=== PATIENT | male | born 1990 | race African-American/Black ===

== ENCOUNTER 2019-11-17 12:22 | Emergency (ER) | payer MEDICAID, OTHER ==
[~2019-11-17] VITALS: Ht 170.2 cm; Wt 87.1 kg
[~2019-11-17 12:22] MED LIST: RISPERDAL0.25 MG ORAL; TENORMIN25 MG ORAL; WELLBUTRIN75 MG ORAL; ZOLOFT25 MG ORAL; ZYPREXA2.5 MG ORAL
[2019-11-17 12:43] VITALS: BP 162/110
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
[2019-11-17 13:44] LABS: ANION GAP 15 mmol/L (5-15); BLOOD UREA NITROGEN 11 mg/dL (7-18); CALCIUM 9.7 MG/DL (8.5-10.1); CARBON DIOXIDE 25 MMOL/L (21-32); CHLORIDE 106 MMOL/L (98-107); POTASSIUM 3.9 MMOL/L (3.5-5.1); SODIUM 146 MMOL/L (136-145)
[2019-11-17 13:46] LABS: APPEARANCE,URINE CLEAR; BILIRUBIN, URINE NEGATIVE (NEGATIVE); GLUCOSE, URINE (UA) NEGATIVE (NEGATIVE); KETONES,URINE NEGATIVE (NEGATIVE); LEUKOCYTE ESTERASE ,URINE 1+ (NEGATIVE); NITRITE,URINE NEGATIVE (NEGATIVE); PH,URINE 6.5 (4.5-8.0); PROTEIN,URINE NEGATIVE (NEGATIVE); UROBILINOGEN,URINE NORMAL MG/DL (0.0-1.0)
[2019-11-17 13:47] LABS: COLOR,URINE YELLOW
[2019-11-17 13:48] LABS: ALANINE AMINOTRANSFERASE 33 U/L (12-78); ALBUMIN 4.2 G/DL (3.4-5.0); ALBUMIN/GLOBULIN RATIO 1.2 (1.0-2.7); ALKALINE PHOSPHATASE 80 U/L (46-116); ASPARTATE AMINO TRANSFERASE 22 U/L (15-37); BILIRUBIN,TOTAL 0.3 MG/DL (0.2-1.0)
[2019-11-17 13:49] LABS: EOSINOPHILS % (AUTO) 0.7 % (0.0-3.0); HEMATOCRIT 43.8 % (42.0-52.0); HEMOGLOBIN 14.5 G/DL (14.2-18.0); LYMPHOCYTES % (AUTO) 19.6 % (20.0-45.0); MEAN CORPUSCULAR VOLUME 89 FL (80-99); MONOCYTES % (AUTO) 7.8 % (1.0-10.0); PLATELET COUNT 221 K/UL (150-450); RED BLOOD COUNT 4.93 M/UL (4.70-6.10); RED CELL DISTRIBUTION WIDTH 10.9 % (11.6-14.8); WHITE BLOOD COUNT 7.9 K/UL (4.8-10.8)
[2019-11-17] MEDS ORDERED: ZOFRAN4 M1 ORAL (14:06)
[2019-11-17] MEDS ORDERED: TYLENOL EXTRA500 MG ORAL (14:06)
[2019-11-17] MEDS ORDERED: OMEPRAZOLE20 M3 ORAL (14:06)
[2019-11-17 14:24] VITALS: BP 138/87
--- NOTE | 2019-11-17 14:25 | NUR ---
ER DISCHARGE NOTE: Patient is cleared to be discharged per ERMD, pt is aox4, on room air, with stable vital signs. pt was given dc and prescription instructions, pt was able to verbalize understanding, pt id band and iv site removed without complications. pt is able to ambulate with steady gait. pt took all belongings.
[2019-12-10] MEDS ORDERED: GUAIFENESIN DM118 M1 ORAL (10:25)
== END 2019-11-17 14:30 | disposition home or self-care (01) ==
LOC: EMR 12:40
DX: R51 Headache (principal); K29.70 Gastritis, unspecified, without bleeding; S00.93XA Contusion of unspecified part of head, initial encounter; I10 Essential (primary) hypertension; F20.9 Schizophrenia, unspecified; Y09 Assault by unspecified means; Y93.9 Activity, unspecified; Y92.9 Unspecified place or not applicable; Z79.899 Other long term (current) drug therapy
CPT/HCPCS: 36415; 70450; 80053; 80307; 81003; 83690; 85025; 96361; 96374; J2405; J7030; Z7502; 99284

== ENCOUNTER 2019-11-22 16:26 | Emergency (ER) | payer MEDICAID ==
[~2019-11-22] VITALS: Ht 170.2 cm; Wt 86.2 kg
[~2019-11-22 16:26] MED LIST changes: +OMEPRAZOLE20 M3 ORAL; +TYLENOL EXTRA500 MG ORAL; +ZOFRAN4 M1 ORAL
[2019-11-22] MEDS ORDERED: AMLODIPINE BESY10 MG ORAL (16:44)
[2019-11-22 16:48] VITALS: BP 164/106
--- NOTE | 2019-11-22 16:48 | NUR ---
ED Nurse Note: Pt walked in from home d/t suicidal ideation. Pt states he wants to hang himself. Room made safe for pt. Pt placed in bed. Respirations even and unlabored on room air. Vitals stable as documented.
--- NOTE | 2019-11-22 16:53 | Emergency Room Report ---
History of Present Illness General Chief Complaint: Behavioral Complaint Source: Patient Present Illness HPI 29-year-old male history of schizophrenia history of depression history of suicidal ideations was going to hang himself today however his friend stopped him he states he get suicidal when he thinks about his dad it alleviated by taking his Abilify he is due on 04 December, current severity is severe, constant patient presents for evaluation Allergies: Coded Allergies: NO KNOWN ALLERGIES (Unverified Allergy, Unknown, 06/24/15) Patient History Past Medical History: see triage record Social History: Reports: smoking Reviewed Nursing Documentation: PMH: Agreed; PSxH: Agreed Nursing Documentation-PMH Past Medical History: No History, Except For Hx Hypertension: Yes History Of Psychiatric Problem: Yes - depression Hx Neurological Problems: Yes - schizophrenia,PTSD Review of Systems All Other Systems: negative except mentioned in HPI Physical Exam Vital Signs Date Time Temp Pulse Resp B/P (MAP) Pulse Ox O2 Delivery O2 Flow Rate FiO2 11/22/19 16:39 98.2 88 16 164/106 (125) 95 Room Air Sp02 EP Interpretation: reviewed, normal General Appearance: no apparent distress, alert Head: normocephalic, atraumatic Eyes: bilateral eye PERRL, bilateral eye EOMI ENT: uvula midline, moist mucus membranes Neck: supple, thyroid normal, supple/symm/no masses Respiratory: lungs clear, no respiratory distress, no retraction, no accessory muscle use Cardiovascular #1: normal peripheral pulses, regular rate, rhythm, no edema, no gallop, no murmur Gastrointestinal: non tender, soft, no guarding, no rebound Musculoskeletal: normal inspection Neurologic: alert, oriented x3 Psychiatric: other - Depressive suicidal Skin: no rash, warm/dry Medical Decision Making Diagnostic Impression: Primary Impression: Suicidal ideations ER Course 29-year-old male presents with acute suicidal ideations attempted suicide in the garage however was stopped by a friend Patient wants to be voluntary, patient is currently medically cleared for transfer to a psychiatric facility Laboratory Tests Test 11/22/19 17:00 White Blood Count 10.2 K/UL (4.8-10.8) Red Blood Count 5.24 M/UL (4.70-6.10) Hemoglobin 14.8 G/DL (14.2-18.0) Hematocrit 46.9 % (42.0-52.0) Mean Corpuscular Volume 90 FL (80-99) Mean Corpuscular Hemoglobin 28.3 PG (27.0-31.0) Mean Corpuscular Hemoglobin Concent 31.6 G/DL (32.0-36.0) L Red Cell Distribution Width 12.1 % (11.6-14.8) Platelet Count 217 K/UL (150-450) Mean Platelet Volume 11.8 FL (6.5-10.1) H Neutrophils (%) (Auto) 71.9 % (45.0-75.0) Lymphocytes (%) (Auto) 19.4 % (20.0-45.0) L Monocytes (%) (Auto) 6.6 % (1.0-10.0) Eosinophils (%) (Auto) 1.3 % (0.0-3.0) Basophils (%) (Auto) 0.8 % (0.0-2.0) Urine Color Yellow Urine Appearance Clear Urine pH 6 (4.5-8.0) Urine Specific [place] 1.020 (1.005-1.035) Urine Protein 1+ (NEGATIVE) H Urine Glucose (UA) Negative (NEGATIVE) Urine Ketones 1+ (NEGATIVE) H Urine Blood 1+ (NEGATIVE) H Urine Nitrite Negative (NEGATIVE) Urine Bilirubin Negative (NEGATIVE) Urine Urobilinogen 1 MG/DL (0.0-1.0) H Urine Leukocyte Esterase 1+ (NEGATIVE) H Urine RBC 2-4 /HPF (0 - 0) H Urine WBC 2-4 /HPF (0 - 0) Urine Squamous Epithelial Cells None /LPF (NONE/OCC) Urine Bacteria Few /HPF (NONE) Urine Mucus Moderate /LPF (NONE/OCC) H Sodium Level 143 MMOL/L (136-145) Potassium Level 3.3 MMOL/L (3.5-5.1) L Chloride Level 104 MMOL/L (98-107) Carbon Dioxide Level 25 MMOL/L (21-32) Anion Gap 14 mmol/L (5-15) Blood Urea Nitrogen 8 mg/dL (7-18) Creatinine 1.1 MG/DL (0.55-1.30) Estimate Glomerular Filtration Rate > 60 mL/min (>60) Glucose Level 98 MG/DL (74-106) Calcium Level 9.7 MG/DL (8.5-10.1) Total Bilirubin 0.2 MG/DL (0.2-1.0) Aspartate Amino Transferase (AST) 22 U/L (15-37) Alanine Aminotransferase (ALT) 37 U/L (12-78) Alkaline Phosphatase 82 U/L (46-116) Total Protein 7.9 G/DL (6.4-8.2) Albumin 4.2 G/DL (3.4-5.0) Globulin 3.7 g/dL Albumin/Globulin Ratio 1.1 (1.0-2.7) Salicylates Level 0.5 ug/mL (2.8-20) L Urine Opiates Screen Negative (NEGATIVE) Acetaminophen Level < 2 MCG/ML (10-30) L Urine Barbiturates Screen Negative (NEGATIVE) Phencyclidine (PCP) Screen Negative (NEGATIVE) Urine Amphetamines Screen Negative (NEGATIVE) Urine Benzodiazepines Screen Negative (NEGATIVE) Urine Cocaine Screen Negative (NEGATIVE) Urine Marijuana (THC) Screen Negative (NEGATIVE) Serum Alcohol < 3 mg/dL Last Vital Signs Date Time Temp Pulse Resp B/P (MAP) Pulse Ox O2 Delivery O2 Flow Rate FiO2 11/22/19 16:39 98.2 88 16 164/106 (125) 95 Room Air Disposition: XFER TO PSYCH HOSP/UNIT Condition: Stable Maxime Arteaga MD Nov 22, 2019 16:53
[2019-11-22 17:38] LABS: ANION GAP 14 mmol/L (5-15); BLOOD UREA NITROGEN 8 mg/dL (7-18); CALCIUM 9.7 MG/DL (8.5-10.1); CARBON DIOXIDE 25 MMOL/L (21-32); CHLORIDE 104 MMOL/L (98-107); CREATININE 1.1 MG/DL (0.55-1.30); POTASSIUM 3.3 MMOL/L (3.5-5.1); SODIUM 143 MMOL/L (136-145)
[2019-11-22 17:42] LABS: ALANINE AMINOTRANSFERASE 37 U/L (12-78); ALBUMIN 4.2 G/DL (3.4-5.0); ALBUMIN/GLOBULIN RATIO 1.1 (1.0-2.7); ALKALINE PHOSPHATASE 82 U/L (46-116); ASPARTATE AMINO TRANSFERASE 22 U/L (15-37); BILIRUBIN,TOTAL 0.2 MG/DL (0.2-1.0)
[2019-11-22 18:06] LABS: APPEARANCE,URINE CLEAR; BILIRUBIN, URINE NEGATIVE (NEGATIVE); GLUCOSE, URINE (UA) NEGATIVE (NEGATIVE); KETONES,URINE 1+ (NEGATIVE); LEUKOCYTE ESTERASE ,URINE 1+ (NEGATIVE); NITRITE,URINE NEGATIVE (NEGATIVE); PH,URINE 6 (4.5-8.0); PROTEIN,URINE 1+ (NEGATIVE); UROBILINOGEN,URINE 1 MG/DL (0.0-1.0)
[2019-11-22 18:08] LABS: BASOPHILS % (AUTO) 0.8 % (0.0-2.0); EOSINOPHILS % (AUTO) 1.3 % (0.0-3.0); HEMATOCRIT 46.9 % (42.0-52.0); HEMOGLOBIN 14.8 G/DL (14.2-18.0); LYMPHOCYTES % (AUTO) 19.4 % (20.0-45.0); MEAN CORPUSCULAR VOLUME 90 FL (80-99); MONOCYTES % (AUTO) 6.6 % (1.0-10.0); NEUTROPHILS % (AUTO) 71.9 % (45.0-75.0); PLATELET COUNT 217 K/UL (150-450); RED BLOOD COUNT 5.24 M/UL (4.70-6.10); RED CELL DISTRIBUTION WIDTH 12.1 % (11.6-14.8); WHITE BLOOD COUNT 10.2 K/UL (4.8-10.8)
[2019-11-22 18:14] LABS: COLOR,URINE YELLOW
--- NOTE | 2019-11-22 19:15 | NUR ---
ED Nurse Note: Report given to LISA Brown. Plan of care endorsed.
--- NOTE | 2019-11-22 19:20 | NUR ---
ED Nurse Note: Report received from donavon harrell. Pt is in no acute distress, resting comfortably in bed. Safety measures in place, sitter bedside. Will continue to monitor.
[2019-11-22 20:45] VITALS: BP 127/81
--- NOTE | 2019-11-22 21:00 | NUR ---
ED Nurse Note: Pt is sleeping in bed at this time. No acute distress noted. Will continue to monitor. Awaiting on ambulance transport.
--- NOTE | 2019-11-22 22:30 | NUR ---
ED Nurse Note: Report given to LISA Judge.
--- NOTE | 2019-11-22 22:40 | NUR ---
ED Nurse Note: IV line removed without complications.
[2019-11-22 22:45] VITALS: BP 124/84
--- NOTE | 2019-11-22 22:45 | NUR ---
ED Nurse Note: Pt stable for transfer to [facility] per ERMD. Pt is aaox4, no acute distress noted. VSS. Pt being transported by [facility]. Report given to ems crew and all belongings sent with pt. Pt is cooperative and not aggressive at this time.
[2019-12-10] MEDS ORDERED: GUAIFENESIN DM118 M1 ORAL (10:25)
== END 2019-11-22 22:45 ==
LOC: EMR 17:22
DX: R45.851 Suicidal ideations (principal); F32.9 Major depressive disorder, single episode, unspecified; F20.9 Schizophrenia, unspecified; F43.10 Post-traumatic stress disorder, unspecified; I10 Essential (primary) hypertension
CPT/HCPCS: 36415; 80053; 80307; 81003; 85025; G0480; G0481; Z7502; 99285

== ENCOUNTER 2019-12-10 10:28 | Emergency (ER) | payer MEDICAID ==
[~2019-12-10] VITALS: Ht 175.3 cm; Wt 83.5 kg
--- NOTE | 2019-12-10 10:17 | Emergency Room Report ---
History of Present Illness General Source: Patient Present Illness HPI Patient is a 29-year-old male presents after increased congestion and nonproductive cough. Prior history of hypertension for which he takes amlodipine. Reports having subjective fever. Denies any vomiting. Denies any diarrhea. Occasional smoking. Onset of symptoms over the past 1 day. Denies any shortness of breath or dizziness. Allergies: Coded Allergies: NO KNOWN ALLERGIES (Unverified Allergy, Unknown, 06/24/15) Patient History Past Medical History: see triage record Reviewed Nursing Documentation: PMH: Agreed; PSxH: Agreed Review of Systems All Other Systems: negative except mentioned in HPI Physical Exam General Appearance: well appearing, no apparent distress, alert, GCS 15 Head: normocephalic, atraumatic ENT: hearing grossly normal, normal voice Neck: full range of motion, supple Respiratory: lungs clear, normal breath sounds, no respiratory distress, speaking full sentences Cardiovascular #1: normal inspection Gastrointestinal: normal inspection, non tender, soft Musculoskeletal: normal inspection, no calf tenderness Neurologic: alert, motor strength/tone normal, 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 Differential diagnosis include was not limited to viral respiratory infection, upper respiratory infection, bronchitis, pneumonia among others. Patient has a benign exam and does not appear to require any imaging or laboratory testing at this time. Patient is afebrile with no known sick contacts or recent travel. Does not appear to be in any respiratory distress. Oxygen saturation is normal and patient is currently afebrile. Patient was noted to have symptoms consistent with a viral respiratory infection. Patient was advised to self quarantine. Was advised to return if began having fever increased difficulty breathing or other concerns. The patient is advised to follow up with primary care doctor for recheck. Patient is advised to return if any worsening condition or if any changes in status that are concerning. Status: improved Disposition: HOME, SELF-CARE Condition: Stable Scripts Guaifenesin/Dextromethorphan* (Guaifenesin Dm Syrup*) 5 Ml Syrup 5 ML ORAL Q8H PRN for FOR COUGH, #118 ML 0 Refills Prov: Devaughn Avendano MD 12/10/19 Devaughn Avendano MD Dec 10, 2019 10:17
[~2019-12-10 10:28] MED LIST changes: +AMLODIPINE BESY10 MG ORAL; +GUAIFENESIN DM118 M1 ORAL
--- NOTE | 2019-12-10 10:45 | NUR ---
ER DISCHARGE NOTE: Patient is cleared to be discharged per ERMD, pt is aox4, on room air, with stable vital signs. pt was given dc and prescription instructions, pt was able to verbalize understanding, pt is able to ambulate with steady gait. pt took all belongings.
[2019-12-10 11:50] VITALS: BP 150/94
[2019-12-10 11:52] VITALS: BP 150/94
== END 2019-12-10 10:45 | disposition home or self-care (01) ==
LOC: EDBD 10:28 → EMR 10:35
DX: J06.9 Acute upper respiratory infection, unspecified (principal)
CPT/HCPCS: 99282

== ENCOUNTER 2020-02-22 20:38 | Emergency (ER) | payer MEDICAID, OTHER ==
[~2020-02-22] VITALS: Ht 172.7 cm; Wt 86.2 kg
[2020-02-22] MEDS ORDERED: HYDROCHLOROTHIA25 MG ORAL (20:42)
[2020-02-22 20:45] VITALS: BP 168/108
--- NOTE | 2020-02-22 20:45 | NUR ---
pED Nurse Note: PT walked in to ED C/O flu like S/Sx with SOB and fever x 2 days. temp at triage is 99.3. HR is 230<. pt reports using meth ealier
--- NOTE | 2020-02-22 21:16 | NUR ---
ED Nurse Note: urine and blod sample sent to lab
[2020-02-22 21:32] LABS: BASOPHILS % (AUTO) 0.9 % (0.0-2.0); EOSINOPHILS % (AUTO) 0.4 % (0.0-3.0); HEMATOCRIT 47.2 % (42.0-52.0); HEMOGLOBIN 14.6 G/DL (14.2-18.0); LYMPHOCYTES % (AUTO) 10.2 % (20.0-45.0); MEAN CORPUSCULAR VOLUME 93 FL (80-99); MONOCYTES % (AUTO) 7.6 % (1.0-10.0); PLATELET COUNT 215 K/UL (150-450); RED BLOOD COUNT 5.05 M/UL (4.70-6.10); RED CELL DISTRIBUTION WIDTH 12.5 % (11.6-14.8); WHITE BLOOD COUNT 12.2 K/UL (4.8-10.8)
[2020-02-22 21:43] LABS: ANION GAP 8 mmol/L (5-15); BLOOD UREA NITROGEN 8 mg/dL (7-18); CALCIUM 9.4 MG/DL (8.5-10.1); CARBON DIOXIDE 30 MMOL/L (21-32); CHLORIDE 103 MMOL/L (98-107); CREATININE 1.2 MG/DL (0.55-1.30); POTASSIUM 4.1 MMOL/L (3.5-5.1); SODIUM 141 MMOL/L (136-145)
[2020-02-22 21:56] LABS: ALANINE AMINOTRANSFERASE 45 U/L (12-78); ALBUMIN 4.5 G/DL (3.4-5.0); ALBUMIN/GLOBULIN RATIO 1.2 (1.0-2.7); ALKALINE PHOSPHATASE 86 U/L (46-116); ASPARTATE AMINO TRANSFERASE 29 U/L (15-37); BILIRUBIN,TOTAL 0.3 MG/DL (0.2-1.0)
[2020-02-22] MEDS ORDERED: Nitroglycerin Subl 0.4mg tab SL PRN (22:00)
[2020-02-22 22:41] VITALS: BP 150/100
--- NOTE | 2020-02-22 22:48 | NUR ---
ED Nurse Note: Repeat trop collected and sent to lab.
--- NOTE | 2020-02-22 22:54 | Emergency Room Report ---
Physical Exam Vital Signs Date Time Temp Pulse Resp B/P (MAP) Pulse Ox O2 Delivery O2 Flow Rate FiO2 02/22/20 20:42 99.3 230 26 160/108 (125) 96 Room Air Last Vital Signs Date Time Temp Pulse Resp B/P (MAP) Pulse Ox O2 Delivery O2 Flow Rate FiO2 02/22/20 23:23 98.7 95 19 178/113 98 Room Air General: Awake and alert, no acute distress HEENT: NC/AT. EOMI. Cardiovascular: RRR. S1 and S2 normal. No murmur appreciated Resp: Normal work of breathing. No cough, wheezing or crackles appreciated Abdomen: Abdomen is soft, nondistended. Nontender Skin: Intact. No abrasions, laceration or rash over the exposed skin MSK: Normal tone and bulk. Moving all extremities. No obvious deformity. Neuro: Awake and alert. Mentating appropriately. Medical Decision Making Diagnostic Impression: Primary Impression: Chest pain Additional Impressions: Abnormal EKG Methamphetamine abuse ER Course Assumed care of the patient from previous provider approximately 2200 hrs. Briefly, this a 29-year-old male initially presenting for complaints of upper respiratory symptoms of 1-2 weeks duration. He was found to be tachycardic and hypertensive. He admitted to using methamphetamines earlier in the day. EKG concerning for isolated ST segment elevation in lead aVL with some lateral and inferior depressions. Patient is complaining of chest pressure on the left side of his chest for 1 week. He is used methamphetamines approximately 2 PM today. Initial troponin, d-dimer and labs aside from tox screen returned within normal limits. At the time of signout we awaiting pending second troponin and repeat EKG. Repeat EKG shows similar pattern of ST segment elevation in aVL with lateral depression patterns from V3 through V6 as well as inferior T wave inversions and ST depression in leads III, II, aVF. There is no prior EKGs for comparison. Second troponin returned negative as well. Discussed with [facility] regarding transfer for higher level of care should the patient require cardiac catheterization. They have accepted. The patient was given aspirin and Lovenox. Will hold on additional antiplatelet medications until cardiology at [facility] can advise on which they would prefer. Patient hypertensive with systolics in the 170s. Cardiac silhouette was within normal limits. Heart rate is improving now between 95 and 105. Will arrange for transport to [facility]. 2300: Patient will be given 600 mg Plavix, heparin bolus and start drip, atorvastatin 80 mg per cardiology recommendations. Arranging transport to [facility]. Dr. Vanegas is the accepting physician. Laboratory Tests Test 02/22/20 21:12 02/22/20 22:45 White Blood Count 12.2 K/UL (4.8-10.8) H Red Blood Count 5.05 M/UL (4.70-6.10) Hemoglobin 14.6 G/DL (14.2-18.0) Hematocrit 47.2 % (42.0-52.0) Mean Corpuscular Volume 93 FL (80-99) Mean Corpuscular Hemoglobin 29.0 PG (27.0-31.0) Mean Corpuscular Hemoglobin Concent 31.0 G/DL (32.0-36.0) L Red Cell Distribution Width 12.5 % (11.6-14.8) Platelet Count 215 K/UL (150-450) Mean Platelet Volume 10.2 FL (6.5-10.1) H Neutrophils (%) (Auto) 81.0 % (45.0-75.0) H Lymphocytes (%) (Auto) 10.2 % (20.0-45.0) L Monocytes (%) (Auto) 7.6 % (1.0-10.0) Eosinophils (%) (Auto) 0.4 % (0.0-3.0) Basophils (%) (Auto) 0.9 % (0.0-2.0) D-Dimer 0.22 mg/L FEU (0.00-0.49) Sodium Level 141 MMOL/L (136-145) Potassium Level 4.1 MMOL/L (3.5-5.1) Chloride Level 103 MMOL/L (98-107) Carbon Dioxide Level 30 MMOL/L (21-32) Anion Gap 8 mmol/L (5-15) Blood Urea Nitrogen 8 mg/dL (7-18) Creatinine 1.2 MG/DL (0.55-1.30) Estimated Glomerular Filtration Rate > 60 mL/min (>60) Glucose Level 95 MG/DL (74-106) Calcium Level 9.4 MG/DL (8.5-10.1) Total Bilirubin 0.3 MG/DL (0.2-1.0) Aspartate Amino Transferase (AST) 29 U/L (15-37) Alanine Aminotransferase (ALT) 45 U/L (12-78) Alkaline Phosphatase 86 U/L (46-116) Troponin I 0.006 ng/mL (0.000-0.056) 0.009 ng/mL (0.000-0.056) Total Protein 8.2 G/DL (6.4-8.2) Albumin 4.5 G/DL (3.4-5.0) Globulin 3.7 g/dL Albumin/Globulin Ratio 1.2 (1.0-2.7) Thyroid Stimulating Hormone (TSH) 1.435 uiU/mL (0.358-3.740) Salicylates Level 1.8 ug/mL (2.8-20) L Urine Opiates Screen Negative (NEGATIVE) Acetaminophen Level < 2 MCG/ML (10-30) L Urine Barbiturates Screen Negative (NEGATIVE) Phencyclidine (PCP) Screen Negative (NEGATIVE) Urine Amphetamines Screen Positive (NEGATIVE) H Urine Benzodiazepines Screen Negative (NEGATIVE) Urine Cocaine Screen Negative (NEGATIVE) Urine Marijuana (THC) Screen Positive (NEGATIVE) H Serum Alcohol < 3 mg/dL EKG Diagnostic Results EKG Time: 22:36 Rate: tachycardiac Other Impression Sinus tachycardia, normal axis, ST segment elevation pattern in aVL. Depressions from V3 through V6 as well as inferior leads Rhythm Strip Diag. Results Rhythm Strip Time: 22:36 EP Interpretation: yes Rate: 110s Rhythm: no PVC's, no ectopy Chest X-Ray Diagnostic Results Chest X-Ray Diagnostic Results : Chest X-Ray Ordered: Yes Indication: Chest Pain Interpretation: no consolidation, no effusion, no pneumothorax, no acute cardiopulmonary disease Impression: No acute disease Electronically Signed by: Electronically signed by Dr. Garth Villalobos Last Vital Signs Date Time Temp Pulse Resp B/P (MAP) Pulse Ox O2 Delivery O2 Flow Rate FiO2 02/22/20 22:41 99.3 112 19 150/100 98 Room Air Disposition: SHORT-TERM HOSP Condition: Stable Referrals: [facility]REF[facility],REFERRING (PCP) Procedures Critical Care Time Critical Care Time Total critical care time: Approximately 45 minutes Due to a high probability of clinically significant, life threatening deterioration, the patient required the highest level of preparedness to intervene emergently and I personally spent this critical care time directly and personally managing the patient. This critical care time included obtaining a history, examining the patient, pulse oximetry, ordering and reviewing studies , ordering treatments, evaluating response to treatment and updating management plan as needed, frequent reassessment and discussion with other providers as well as arranging for ultimate disposition. This critical to care time was performed to assess and manage the high probability of life-threatening deterioration that could result in multiorgan failure. This critical care time is separate from the separately billable procedures and treating other patients. Garth Villalobos MD Feb 22, 2020 22:54
--- NOTE | 2020-02-22 23:11 | NUR ---
ED Nurse Note: report given to LISA elder. endorsed plan of care.
--- NOTE | 2020-02-22 23:15 | NUR ---
ED Nurse Note: Received report from LISA Madrid. patient in [facility] complaining of no distress at this moment, will continue to monitor
[2020-02-22 23:23] VITALS: BP_SYST 143; BP_SYST 178; BP_DIAS 113; BP_DIAS 93
--- NOTE | 2020-02-22 23:27 | NUR ---
speaking with ER doctor at [facility].
[2020-02-22] MEDS ORDERED: Enoxaparin 100mg Inj SUBQ SCH (23:30)
--- NOTE | 2020-02-22 23:31 | Diagnostic Imaging Report ---
EXAM: XR Chest, 1 View CLINICAL HISTORY: SOB TECHNIQUE: Frontal view of the chest. COMPARISON: None FINDINGS: Lungs: No acute cardiopulmonary process. Pleural space: Unremarkable. No pneumothorax. Heart: Unremarkable. No cardiomegaly. Mediastinum: Unremarkable. Bones/joints: Unremarkable. IMPRESSION: No acute findings in the chest.
--- NOTE | 2020-02-22 23:35 | NUR ---
ED Nurse Note: patient made aware of current events. patient has signed transfer form. will initiate transfer process.
[2020-02-22] MEDS ORDERED: Heparin 1000 units/ml 1ml Vial INJ ONE (23:45)
[2020-02-22] MEDS ORDERED: Heparin 5000 units/ml inj ONE (23:53)
[2020-02-22] MEDS ORDERED: Atorvastatin 80mg tab ONE (23:53)
[2020-02-23] MEDS ORDERED: Heparin1,000 units/500ml Premix(Conc:2 units/ml) IV ONE
[2020-02-23] MEDS ORDERED: Heparin 5000 units/ml inj IV ONE
[2020-02-23] MEDS ORDERED: Heparin 25,000u/D5W 500ml 500 ML IV SCH
[2020-02-23 00:09] VITALS: BP 173/99
--- NOTE | 2020-02-23 00:15 | NUR ---
ED Nurse Note: Gave report to LISA Fink from [facility]. called [facility] dispatch for HLOC transfer. will continue to monitor
[2020-02-23 00:30] VITALS: BP 173/99
--- NOTE | 2020-02-23 01:41 | NUR ---
TRANSFER Patient is transferred to [facility] for HLOC. patient transferred via [facility] accompanied by Primary RN. patient has taken all belongings and complains of no pain at this time, Heparin is infusing in left AC 18 gauge
== END 2020-02-23 00:30 | disposition short-term general hospital (02) ==
LOC: EMR 21:42 → EDBEDREQ 22:07 → EMR 02-23 00:30
DX: R07.9 Chest pain, unspecified (principal); R94.31 Abnormal electrocardiogram [ECG] [EKG]; F15.10 Other stimulant abuse, uncomplicated; I10 Essential (primary) hypertension; R00.0 Tachycardia, unspecified
CPT/HCPCS: 36415; 71045; 80053; 80307; 84443; 84484; 85025; 85379; 93005; 96360; G0480; G0481; J1644; J1650; J7030; Z7502; 99291

== ENCOUNTER 2020-03-31 05:07 | Emergency (ER) | payer MEDICAID, OTHER ==
[~2020-03-31] VITALS: Ht 170.2 cm; Wt 86.2 kg
[~2020-03-31 05:07] MED LIST changes: +HYDROCHLOROTHIA25 MG ORAL; +TESSALON PERLE100 MG ORAL
[2020-03-31 05:16] VITALS: BP 148/82
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
--- NOTE | 2020-03-31 06:21 | Diagnostic Imaging Report ---
EXAM: CT Head Without Intravenous Contrast CLINICAL HISTORY: INJ TECHNIQUE: Axial computed tomography images of the head/brain without intravenous contrast. CTDI is 53.4 mGy and DLP is 1098.9 mGy-cm. One or more of the following dose reduction techniques were used: automated exposure control, adjustment of the mA and/or kV according to patient size, use of iterative reconstruction technique. COMPARISON: No relevant prior studies available. FINDINGS: There is no acute intracranial hemorrhage. The [place]-white matter differentiation is maintained throughout. There is no midline shift or mass effect. The ventricles and sulci are commensurate for age. The visualized orbits appear grossly unremarkable. The calvarium is intact. The visualized paranasal sinuses and mastoid air cells are grossly clear. IMPRESSION: No acute intracranial hemorrhage, midline shift, or mass effect.
[2020-03-31] MEDS ORDERED: IBUPROFEN600 M1 ORAL (06:23)
[2020-03-31 07:11] VITALS: BP 128/78
== END 2020-03-31 07:12 | disposition home or self-care (01) ==
LOC: EDBD 05:07 → EMR 05:15
DX: S09.90XA Unspecified injury of head, initial encounter (principal); Y04.8XXA Assault by other bodily force, initial encounter; Y92.9 Unspecified place or not applicable; I10 Essential (primary) hypertension; F20.9 Schizophrenia, unspecified
CPT/HCPCS: 70450; Z7502; 99284

== ENCOUNTER 2020-04-11 20:10 | Emergency (ER) | payer OTHER ==
[~2020-04-11] VITALS: Ht 170.2 cm; Wt 86.2 kg
--- NOTE | 2020-04-11 19:59 | NUR ---
ED Nurse Note: pt walked in to ED for C/O Chest Discomfort and sorethroat since last night.
[2020-04-11 20:00] VITALS: BP 154/97
[~2020-04-11 20:10] MED LIST changes: +IBUPROFEN600 M1 ORAL
--- NOTE | 2020-04-11 20:24 | NUR ---
ED Nurse Note: chest x ray taken at tent 2
--- NOTE | 2020-04-11 20:39 | Emergency Room Report ---
History of Present Illness General Chief Complaint: Sore Throat Source: Patient Present Illness HPI 29-year-old male with no significant past medical history here complaining of 1 day of sore throat and chest tightness however denies any shortness of breath or cough. Denies congestion, fever chills, abdominal pain, nausea vomiting diarrhea. Denies any loss of taste or smell. Rates the pain in his throat 3 out of 10. Has not taken medication for symptom relief. Reports that he has been around people in the past several weeks. Does not know if he came in contact with a person who is positive for COVID. O2 sat are within normal limits and patient is afebrile. Denies tobacco smoke alcohol or drug use. Allergies: Coded Allergies: NO KNOWN ALLERGIES (Unverified Allergy, Unknown, 06/24/15) COVID-19 Screening Contact w/high risk pt: No Recent Travel to affected area: No Experienced COVID-19 symptoms?: Yes COVID-19 symptoms experienced: Shortness of Breath, Cough COVID-19 Testing performed ENGINEERING PSYCHOLOGIST: No Patient History Past Medical History: see triage record Past Surgical History: none Pertinent Family History: none Immunizations: UTD Reviewed Nursing Documentation: PMH: Agreed; PSxH: Agreed Nursing Documentation-PMH Past Medical History: No History, Except For Hx Hypertension: Yes Hx Neurological Problems: Yes - schizophrenia,PTSD Review of Systems All Other Systems: negative except mentioned in HPI Physical Exam Vital Signs Date Time Temp Pulse Resp B/P (MAP) Pulse Ox O2 Delivery O2 Flow Rate FiO2 04/11/20 19:57 99.0 105 19 154/97 (116) 97 Room Air Sp02 EP Interpretation: reviewed, normal General Appearance: no apparent distress, alert, GCS 15, non-toxic Head: normocephalic, atraumatic Eyes: bilateral eye normal inspection, bilateral eye PERRL ENT: hearing grossly normal, normal pharynx, no angioedema, normal voice Neck: full range of motion, supple/symm/no masses Respiratory: chest non-tender, lungs clear, normal breath sounds, speaking full sentences Cardiovascular #1: regular rate, rhythm, no edema Gastrointestinal: normal bowel sounds, non tender, soft, non-distended, no guarding, no rebound Genitourinary: no CVA tenderness Musculoskeletal: back normal Neurologic: alert, motor strength/tone normal, oriented x3, sensory intact, responsive, speech normal Psychiatric: judgement/insight normal Skin: no rash Lymphatic: no adenopathy Medical Decision Making PA Attestation All diagnosis and treatment plans were discussed and reviewed by my supervising physician Dr. Mathias Diagnostic Impression: Primary Impression: URI (upper respiratory infection) Additional Impression: Pharyngitis ER Course 29-year-old male with no significant past medical history here complaining of 1 day of sore throat and chest tightness however denies any shortness of breath or cough. Denies congestion, fever chills, abdominal pain, nausea vomiting diarrhea. Denies any loss of taste or smell. Rates the pain in his throat 3 out of 10. Has not taken medication for symptom relief. Reports that he has been around people in the past several weeks. Does not know if he came in contact with a person who is positive for COVID. O2 sat are within normal limits and patient is afebrile. Denies tobacco smoke alcohol or drug use. Ddx considered but are not limited to: strep pharyngitis, URI, tonsillitis, peritonsillar abscess, influneza, coronavirus Vital signs: are WNL, pt. is afebrile H&PE are most consistent with: URI, pharyngitis ORDERS: Chest x-ray, azithromycin, prednisone ED INTERVENTIONS: None required at this time. DISCHARGE: At this time pt. is stable for d/c to home. Will provide printed patient care instructions, and any necessary prescriptions. Care plan and follow up instructions have been discussed with the patient prior to discharge. Patient take medication as directed, follow-up primary care provider, return to emergency room. I also sent patient to [place] [id number] for covid testing Chest X-Ray Diagnostic Results Chest X-Ray Diagnostic Results : Chest X-Ray Ordered: Yes # of Views/Limited/Complete: 1 View Indication: Shortness of Breath EP Interpretation: Yes JOCELIN Xray: Interpretation reviewed, by supervising MD, and agrees with findings. Interpretation: no consolidation, no effusion, no pneumothorax Impression: No acute disease Electronically Signed by: Antonella Contreras PA-C Last Vital Signs Date Time Temp Pulse Resp B/P (MAP) Pulse Ox O2 Delivery O2 Flow Rate FiO2 04/11/20 20:00 99.0 105 19 154/97 97 Room Air Disposition: HOME, SELF-CARE Condition: Stable Scripts Prednisone* (PREDNISONE*) 20 Mg Tablet 40 MG ORAL DAILY for 5 Days, #10 TAB Prov: Antonella Jeong 04/11/20 Azithromycin* (ZITHROMAX*) 250 Mg Tablet 250 MG ORAL DAILY, #6 TAB 0 Refills Take two tables once daily for 1 day, then one tablet once daily for 4 days. Prov: Antonella Jeong 04/11/20 Patient Instructions: Pharyngitis, [id number], Upper Respiratory Infection, Adult, [id number] Additional Instructions: Take medication as directed, follow-up with your primary care provider, self isolate for the next 14 days, if worsening symptoms return to the emergency room Antonella Jeong Apr 11, 2020 20:39
[2020-04-11] MEDS ORDERED: PREDNISONE20 MG ORAL (20:40)
[2020-04-11] MEDS ORDERED: ZITHROMAX250 MG ORAL (20:40)
[2020-04-11 20:46] VITALS: BP 150/98
--- NOTE | 2020-04-11 20:46 | NUR ---
ER DISCHARGE NOTE: Patient is cleared to be discharged per ERMD, pt is aox4, on room air, with stable vital signs. pt was given dc and prescription instructions, pt was able to verbalize understanding, pt id band removed without complications. pt is able to ambulate with steady gait. pt took all belongings.
--- NOTE | 2020-04-14 10:28 | Diagnostic Imaging Report ---
EXAM: XR Chest, 1 View CLINICAL HISTORY: shortness of breath TECHNIQUE: Frontal view of the chest. COMPARISON: 03/22/20 FINDINGS: Lungs: Normal lung volumes. No airspace consolidation. No acute interstitial abnormality. Pleural space: Unremarkable. No pneumothorax. Heart: Unremarkable. No cardiomegaly. Mediastinum: Unremarkable. No mediastinal widening or shift. Bones/joints: Unremarkable. IMPRESSION: No acute cardiopulmonary abnormality.
== END 2020-04-11 20:46 | disposition home or self-care (01) ==
LOC: EDBD 20:10 → EMR 20:37
DX: J06.9 Acute upper respiratory infection, unspecified (principal); J02.9 Acute pharyngitis, unspecified; I10 Essential (primary) hypertension; F20.9 Schizophrenia, unspecified
CPT/HCPCS: 71045; Z7502; 99283

== ENCOUNTER 2020-05-16 10:10 | Emergency (ER) | payer OTHER ==
[~2020-05-16] VITALS: Ht 170.2 cm; Wt 87.5 kg
[~2020-05-16 10:10] MED LIST changes: +PREDNISONE20 MG ORAL; +ZITHROMAX250 MG ORAL
[2020-05-16 10:19] VITALS: BP 164/92
[2020-05-16] MEDS ORDERED: Azithromycin 250mg tab ORAL ONE (10:45)
[2020-05-16] MEDS ORDERED: Azithromycin 500 MG in NS 275 ML IV ONE (10:45)
[2020-05-16] MEDS ORDERED: Lidocaine 1% MPF 10mg/ml 5ml INJ ONE (10:45)
[2020-05-16 10:47] VITALS: BP 145/88
--- NOTE | 2020-05-16 12:34 | Emergency Room Report ---
History of Present Illness General Chief Complaint: Male Urogenital Problems Source: Patient Present Illness HPI 29-year-old male presents to ED for evaluation. States that he had unprotected sex 3 days ago. Denies any discharge but was told partner may have STD. Denies any fevers or chills. Notes some dysuria. Denies flank pain nausea or vomiting. No other aggravating relieving factors. Denies any other associated symptoms Allergies: Coded Allergies: NO KNOWN ALLERGIES (Unverified Allergy, Unknown, 05/16/20) COVID-19 Screening Contact w/high risk pt: No Recent Travel to affected area: No Experienced COVID-19 symptoms?: No COVID-19 symptoms experienced: Shortness of Breath, Cough COVID-19 Testing performed OFFICE SERVICES ASSISTANT: No Patient History Past Medical History: psych hx Past Surgical History: none Pertinent Family History: none Social History: Denies: smoking, alcohol use, drug use Immunizations: UTD Reviewed Nursing Documentation: PMH: Agreed; PSxH: Agreed Nursing Documentation-PMH Past Medical History: No History, Except For Hx Hypertension: Yes Hx Neurological Problems: Yes - schizophrenia,PTSD Review of Systems All Other Systems: negative except mentioned in HPI Physical Exam Vital Signs Date Time Temp Pulse Resp B/P (MAP) Pulse Ox O2 Delivery O2 Flow Rate FiO2 05/16/20 10:13 97.5 80 18 164/92 (116) 97 Room Air Sp02 EP Interpretation: reviewed, normal General Appearance: no apparent distress, alert, GCS 15, non-toxic Head: normocephalic, atraumatic Eyes: bilateral eye normal inspection, bilateral eye PERRL ENT: hearing grossly normal, normal pharynx, no angioedema, normal voice Neck: full range of motion, supple/symm/no masses Respiratory: chest non-tender, lungs clear, normal breath sounds, speaking full sentences Cardiovascular #1: regular rate, rhythm, no edema Cardiovascular #2: 2+ carotid (R), 2+ carotid (L), 2+ radial (R), 2+ radial (L) , 2+ dorsalis pedis (R), 2+ dorsalis pedis (L) Gastrointestinal: normal bowel sounds, non tender, soft, non-distended, no guarding, no rebound Rectal: deferred Genitourinary: normal inspection, no CVA tenderness Musculoskeletal: back normal, normal range of motion, gait/station normal, non- tender Neurologic: alert, motor strength/tone normal, oriented x3, sensory intact, responsive, speech normal Psychiatric: judgement/insight normal, memory normal, mood/affect normal, no suicidal/homicidal ideation Reflexes: 3+ bicep (R), 3+ bicep (L), 3+ tricep (R), 3+ tricep (L), 3+ knee (R) , 3+ knee (L) Lymphatic: no adenopathy Medical Decision Making Diagnostic Impression: Primary Impression: Urethritis ER Course Hospital Course 29-year-old male presents ED with dysuria History of unprotected sex Differential diagnoses include: trichimonas, gonorrhea, chlamydia Clinical course Patient placed on stretcher. After initial history physical exam reveals a young male in no acute distress. Physical exam unremarkable. No testicular pain or swelling. No noted urethral discharge We will treat him clinically for Trichomonas and gonorrhea/Chlamydia. Given azithromycin/Rocephin in ED I discussed findings with patient. Safe for discharge with close outpatient follow-up. I will provide STD clinic referrals Diagnosis - urethritis Stable and discharged home. Instructed to followup with PMD. Return to ED if symptoms recur or worsen Last Vital Signs Date Time Temp Pulse Resp B/P (MAP) Pulse Ox O2 Delivery O2 Flow Rate FiO2 05/16/20 10:47 97.5 74 18 145/88 98 Room Air Status: improved Disposition: HOME, SELF-CARE Condition: Stable Referrals: NOT CHOSEN IPA/,REFERRING (PCP) [facility] Patient Instructions: Urethritis, Adult Chuck Tobar MD May 16, 2020 12:34
== END 2020-05-16 10:48 | disposition home or self-care (01) ==
LOC: EMR 10:31
DX: N34.2 Other urethritis (principal); I10 Essential (primary) hypertension; F20.9 Schizophrenia, unspecified; Z20.2 Contact with and (suspected) exposure to infections with a predominantly sexual mode of transmission
CPT/HCPCS: 96372; 96374; J0696; Q0144; Z7502; 99284